=== PATIENT | male | born 2000 | race African-American/Black ===

== ENCOUNTER 2019-05-22 22:19 | Emergency (ER) | payer MEDICAID, SELFPAY ==
[2019-05-22 22:19] VITALS: BP 132/79; PULSE 80; RESP 15; TEMP 36.7; O2SAT 99; BMI 24.3
--- NOTE | 2019-05-22 22:45 | ED.VISSUMM ---
- ER Visit Summary Date of Service: 05/22/19 Chief Complaint: STD check History of Present Illness: The patient is a 19 M who tells me that his girlfriend who is 37 weeks just tested positive for gonorrhea while in OB triage. He states that he has been experiencing a intermittent suprapubic discomfort for the past several days. He denies any dysuria frequency or penile drainage. States he has a history of having trichomonas in the past. No fevers or rashes. He denies any chancres. Physical Examination: Afebrile vital signs stable Gen: Well-nourished well-developed Head: Normocephalic atraumatic Eyes: Perrl EOMI ENT: TMs clear no rhinorrhea moist mucous membranes Neck: Supple no lymphadenopathy no JVD nontender CVS: Regular rate rhythm no murmurs normal S1-S2 Respiratory: No distress clear to auscultation bilaterally chest nontender Abdomen: Soft nontender nondistended normal bowel sounds no masses : Normal exam Back: Nontender Extremity: Nontender no edema Skin: Normal color no rash Neuro: alert orientated ?3 CN II-XII intact normal strength sensation reflexes gait cerebellar Psych: Normal affect normal mood Emergency Department Course and Treatment: A formal UA and GC and chlamydia was sent. He received Rocephin and azithromycin. Patient to abstain from sexual intercourse until him and his partner have tested negative. Impression: 1. STD exposure This note was generated with [employer] dictation software. It may contain incorrect words, spelling, and punctuation that were not noted in review of the chart prior to signing ED Disposition - Plan for ED Patient: Disposition: Home or Assisted Living Instructions: Understanding STDs Referrals: Royal Norwood MD [STAFF PHYSICIAN] - (for primary care)
[2019-05-22 22:57] LABS: Red Blood Cells-Urine 0 SEEN /hpf (0-5)
[2019-05-22] MEDS: Azithromycin 250 MG Tablet 1000 MG PO (22:59)
[2019-05-22] MEDS: Ceftriaxone 500 MG Vial 250 MG IM (23:00)
[2019-05-22 23:02] LABS: Color, Urine Yellow (Yellow); Glucose, Dipstick Normal (Normal); Ketone-Dipstick Negative (Negative); Leukocyte Esterase-Dipstick Negative /ul (Negative); Nitrite-Dipstick Negative (Negative); Occult Blood-Urine Negative /ul (Negative); Protein-Dipstick Negative (Negative); Urine Bilirubin Dipstick Negative (Negative); Urine Clarity Sl. Cloudy (Clear); Urine Urobilinogen 1 mg/dl (Normal)
[2019-05-22 23:06] LABS: Bacteria RARE /hpf (None Seen); Squamous Epithelial Cells - UA 0-5 SEEN /hpf (0-5); White Blood Cells 0-5 SEEN /hpf (0-5)
[2019-05-22 23:07] LABS: Mucous, Urine 1+ /hpf (<or=2+)
[2019-05-22 23:17] VITALS: RESP 17
[2019-05-23 01:01] LABS: Chlamydia Trachomatis by PCR Negative (Negative); Neisserai gonorrhoeae by PCR Negative (Negative); Probe Check PASS; Sample Adequacy Control PASS; Specimen Processing Control PASS
== END 2019-05-22 23:19 | disposition home or self-care (01) ==
PROVIDERS: Emergency Provider Emergency Medicine
DX: Z20.2 Contact with and (suspected) exposure to infections with a predominantly sexual mode of transmission (principal)
CPT/HCPCS: 81001; 87491; 87591; 96372; 99283